=== PATIENT | male | born 1975 | race Hispanic/Latino ===

== ENCOUNTER 2016-12-05 10:11 | Outpatient (CLI) | payer OTHER | END 2016-12-05 10:12 | disposition home or self-care (01) | LOC: LAB 10:11 → MERGE 10:11 → LAB 10:12 | PROVIDERS: ATTEND Psychiatry & Neurology Psychiatry | DX: F33.1 Major depressive disorder, recurrent, moderate (principal) | CPT/HCPCS: 36415; 86592 ==

== ENCOUNTER 2016-12-14 21:15 | Emergency (ER) | payer OTHER ==
[2016-12-14 22:07] LABS: Urine Drugs of Abuse Note Disclamer
[2016-12-14 22:15] LABS: Bilirubin,Urine NEG (Negative); Blood,Urine NEG (Negative); Ketones,Urine NEG (Negative); Leukocyte Esterase,Urine NEG (Negative); Nitrite,Urine NEG (Negative); Protein,Urine <15 mg/dL mg/dL (Negative); WBC,Urine < 1.0 /HPF (0.0-6.0)
[2016-12-14 22:19] LABS: Basophils % (Auto) 0.8 % (0.0-1.8); Eosinophils % (Auto) 2.7 % (0.0-4.3); Hematocrit 38.6 % (35.5-45.6); Hemoglobin 12.9 gm/dl (11.8-15.2); Mean Corpuscular HGB Conc 34 % (32-34); Mean Corpuscular Hemoglobin 26 pg (28-32); Mean Corpuscular Volume 79 fl (84-94); Platelet Count 155 K/mm3 (140-440); Red Blood Count 4.89 M/mm3 (3.65-5.03); Red Cell Distribution Width 16.1 % (13.2-15.2); White Blood Count 9.6 K/mm3 (4.5-11.0)
[2016-12-14 22:34] LABS: Anion Gap 19 mmol/L; Blood Urea Nitrogen 13 mg/dL (9-20); Calcium 8.7 mg/dL (8.4-10.2); Carbon Dioxide 27 mmol/L (22-30); Chloride 100.8 mmol/L (98-107); Glucose 156 mg/dL (75-100); Potassium 3.7 mmol/L (3.6-5.0); Sodium 143 mmol/L (137-145)
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
[2016-12-15 13:38] VITALS: BP 144/79
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
== END 2016-12-15 16:35 ==
LOC: ED 21:15 → EEVIPCON 21:15 → ED 12-15 16:35
DX: F33.3 Major depressive disorder, recurrent, severe with psychotic symptoms (principal); F23 Brief psychotic disorder; F17.200 Nicotine dependence, unspecified, uncomplicated
CPT/HCPCS: 36415; 80048; 80307; 81001; 85025; 99285; G0480; 80320

== ENCOUNTER 2016-12-18 15:02 | Inpatient (IN) | payer OTHER ==
[2016-12-18] MEDS ORDERED: NACL 0.9% 500 ML 500 ML IV ONE (15:52)
--- NOTE | 2016-12-18 16:17 | XRay Report ---
AP CHEST: HISTORY: Sepsis AP view of the chest demonstrates a normal mediastinal and cardiac contour with clear lungs and normal bony and soft tissue structures. IMPRESSION: Unremarkable AP chest.
[2016-12-18 16:42] LABS: Basophils % (Auto) 0.5 % (0.0-1.8); Eosinophils % (Auto) 1.6 % (0.0-4.3); Hematocrit 39.2 % (35.5-45.6); Hemoglobin 12.5 gm/dl (11.8-15.2); Mean Corpuscular HGB Conc 32 % (32-34); Mean Corpuscular Volume 80 fl (84-94); Platelet Count 145 K/mm3 (140-440); Red Cell Distribution Width 16.4 % (13.2-15.2); White Blood Count 11.9 K/mm3 (4.5-11.0)
[2016-12-18 16:49] LABS: Mean Corpuscular Hemoglobin 26 pg (28-32)
[2016-12-18 16:50] LABS: INR 1.07 (0.87-1.13)
[2016-12-18 16:53] LABS: Alanine Aminotransferase 41 units/L (7-56); Albumin/Globulin Ratio 1.2 %; Alkaline Phosphatase 77 units/L (35-129); Anion Gap 25 mmol/L; Blood Urea Nitrogen 11 mg/dL (9-20); Calcium 8.7 mg/dL (8.4-10.2); Carbon Dioxide 22 mmol/L (22-30); Glucose 260 mg/dL (75-100); Potassium 4.7 mmol/L (3.6-5.0); Sodium 136 mmol/L (137-145); Total Protein 7.4 g/dL (6.3-8.2)
[2016-12-18 16:54] LABS: Bilirubin,Urine NEG (Negative); Blood,Urine NEG (Negative); Ketones,Urine TR mg/dL (Negative); Leukocyte Esterase,Urine TR (Negative); Mucus,Urine 1+ /HPF; Nitrite,Urine NEG (Negative)
[2016-12-18] MEDS ORDERED: ZOSYN/NS 4.5GM/100ML 4.5 GM/100 ML VIAL IV ONE (17:18)
[2016-12-18] MEDS ORDERED: VANCOMYCIN/NS 1 GM/250 ML 1 GM/250 ML BAG IV ONE (17:18)
--- NOTE | 2016-12-18 17:28 | Emergency Department Report ---
HPI - General Chief Complaint: Wound/Laceration Time Seen by Provider: 12/18/16 17:03 - HPI HPI: Room 18 The patient is a 40-year-old male presenting with a chief complaint of right thumb infection. The patient is currently at [facility] under 1013 for psychosis and EtOH abuse. The patient states 3 days ago he got a splinter in his right thumb. The patient states he noticed redness and swelling over the past couple days that has been worsening. Yesterday the wound opened. The patient was seen by the physician at [facility] and sent to the ED for evaluation. ED Past Medical Hx - Past Medical History Hx Diabetes: Yes Additional medical history: ETOH ABUSE - Surgical History Additional Surgical History: Right elbow crush injury with infection multiple surgeries. Left ankle fracture repair. Left hip replacement - Family History Family history: no significant - Social History Smoking Status: Current Every Day Smoker Substance Use Type: Alcohol - Medications Home Medications: Home Medications Medication Instructions Recorded Confirmed Last Taken Type Depakote 1,000 mg PO QHS 12/18/16 12/18/16 1 Day Ago History Doxycycline [Vibramycin CAP] 100 mg PO DAILY 12/18/16 12/18/16 12/18/16 History 100mg Mirtazapine [Remeron] 15 mg PO QHS 12/18/16 12/18/16 1 Day Ago History 15 Naltrexone (Nf) [Revia (Nf)] 50 mg PO QHS 12/18/16 12/18/16 1 Day Ago History 50mg Saxagliptin HCl/Metformin HCl 2.5 - 1,000 mg PO BID 12/18/16 12/18/16 12/18/16 History [Kombiglyze XR 2.5-1,000 mg] 2.5/1000mg Venlafaxine Xr [Effexor XR] 150 mg PO DAILY 12/18/16 12/18/16 12/18/16 History hydrOXYzine PAMOATE [Vistaril] 50 mg PO QID 12/18/16 12/18/16 12/18/16 History 50mg traZODone [Desyrel] 300 mg PO QHS 12/18/16 12/18/16 1 Day Ago History ED Review of Systems ROS: Stated complaint: RT THUMB PAIN Other details as noted in HPI Comment: All other systems reviewed and negative Constitutional: denies: chills Eyes: denies: eye pain, eye discharge, vision change ENT: denies: ear pain, throat pain Respiratory: denies: cough, shortness of breath, wheezing Cardiovascular: denies: chest pain, palpitations Endocrine: no symptoms reported Gastrointestinal: denies: abdominal pain, nausea, diarrhea Genitourinary: denies: urgency, dysuria Musculoskeletal: arthralgia, myalgia Skin: lesions, change in color Neurological: denies: headache, weakness, paresthesias Psychiatric: denies: anxiety, depression Hematological/Lymphatic: denies: easy bleeding, easy bruising Physical Exam - Physical Exam Vital Signs: Vital Signs 12/18/16 12/18/16 15:50 15:51 Temperature 98.4 F 97.9 F Pulse Rate 102 H 104 H Respiratory 16 18 Rate Blood Pressure 130/75 130/75 [Left] O2 Sat by Pulse 99 96 Oximetry Physical Exam: GENERAL: The patient is well-developed well-nourished male lying on stretcher not appearing to be in acute distress. [] HEENT: Normocephalic. Atraumatic. Extraocular motions are intact. Patient has moist mucous membranes. NECK: Supple. Trachea midline CHEST/LUNGS: Clear to auscultation. There is no respiratory distress noted. HEART/CARDIOVASCULAR: Regular. There is no tachycardia. There is no gallop rub or murmur. 2+ radial pulse ABDOMEN: Abdomen is soft, nontender. Patient has normal bowel sounds. There is no abdominal distention. SKIN: There is swelling and discoloration of distal right thumb. There is a region of central opening to the anterior aspect of the right thumb. No active drainage appreciated. There is no diaphoresis. NEURO: The patient is awake, alert, and oriented. The patient is cooperative. The patient has normal speech MUSCULOSKELETAL:There is no limitation range of motion. ED Course Vital Signs 12/18/16 12/18/16 15:50 15:51 Temperature 98.4 F 97.9 F Pulse Rate 102 H 104 H Respiratory 16 18 Rate Blood Pressure 130/75 130/75 [Left] O2 Sat by Pulse 99 96 Oximetry ED Medical Decision Making - Lab Data Result diagrams: 12/18/16 16:19 12/18/16 16:19 Laboratory Tests 12/18/16 12/18/16 12/18/16 16:05 16:19 16:19 WBC 11.9 H RBC 4.90 Hgb 12.5 Hct 39.2 MCV 80 L MCH 26 L MCHC 32 RDW 16.4 H Plt Count 145 Lymph % (Auto) 11.4 L [place]ney % (Auto) 7.7 H Eos % (Auto) 1.6 Baso % (Auto) 0.5 Lymph # 1.4 Harney # 0.9 H Eos # 0.2 Baso # 0.1 Seg Neutrophils % 78.8 H Seg Neutrophils # 9.4 H PT 13.8 INR 1.07 Sodium Potassium Chloride Carbon Dioxide Anion Gap BUN Creatinine Estimated GFR BUN/Creatinine Ratio Glucose POC Glucose Lactic Acid Calcium Total Bilirubin AST ALT Alkaline Phosphatase Total Protein Albumin Albumin/Globulin Ratio Urine Color Yellow Urine Turbidity Clear Urine pH 5.0 Ur Specific [place] 1.021 Urine Protein 100 mg/dl Urine Glucose (UA) 150 Urine Ketones Tr Urine Blood Neg Urine Nitrite Neg Urine Bilirubin Neg Urine Urobilinogen 4.0 Ur Leukocyte Esterase Tr Urine WBC (Auto) 1.0 Urine RBC (Auto) 3.0 U Epithel Cells (Auto) < 1.0 Hyaline Casts 4 Urine Mucus 1+ 12/18/16 12/18/16 12/18/16 16:19 16:19 17:09 WBC RBC Hgb Hct MCV MCH MCHC RDW Plt Count Lymph % (Auto) [place] % (Auto) Eos % (Auto) Baso % (Auto) Lymph # [place] # Eos # Baso # Seg Neutrophils % Seg Neutrophils # PT INR Sodium 136 L Potassium 4.7 D Chloride 94.0 L Carbon Dioxide 22 Anion Gap 25 BUN 11 Creatinine 0.5 L Estimated GFR > 60 BUN/Creatinine Ratio 22.00 Glucose 260 H POC Glucose 249 H Lactic Acid 4.80 H* Calcium 8.7 Total Bilirubin 0.20 AST 26 ALT 41 Alkaline Phosphatase 77 Total Protein 7.4 Albumin 4.0 Albumin/Globulin Ratio 1.2 Urine Color Urine Turbidity Urine pH Ur Specific [place] Urine Protein Urine Glucose (UA) Urine Ketones Urine Blood Urine Nitrite Urine Bilirubin Urine Urobilinogen Ur Leukocyte Esterase Urine WBC (Auto) Urine RBC (Auto) U Epithel Cells (Auto) Hyaline Casts Urine Mucus - Radiology Data Radiology results: image reviewed (right thumb x-ray, chest x-ray) interpreted by me: Right thumb x-ray-no foreign bodies, no fracture seen. Chest x-ray-no focal infiltrates, no pneumothorax - Differential Diagnosis cellulitis, osteomyelitis Critical care attestation.: If time is entered above; I have spent that time in minutes in the direct care of this critically ill patient, excluding procedure time. ED Disposition Clinical Impression: Cellulitis of right thumb, Leukocytosis Disposition: [id number] OP ADMIT IP TO THIS HOSP Is pt being admited?: Yes Does the pt Need Aspirin: Yes Condition: Fair Time of Disposition: 17:30 (hospitalist paged)
--- NOTE | 2016-12-18 17:56 | Admit Criteria Form ---
Admission Criteria Documentation: CELLULITIS Clinical Indications for Admission to Inpatient Care ([place]/check or initial the applicable condition/criteria) Admission is indicated for ANY ONE of the following(1)(2)(3)(4)(5): [ ]I. Limb-threatening infection [ X]II. High-risk comorbid condition as indicated by ANY ONE of the following: [X ]a) Uncontrolled diabetes (eg, HbA1c greater than 10% (0.1)) [ ]b) Cirrhosis [ ]c) Neutropenia [ ]d) Asplenia(12) [ ]e) Immunosuppression [ ]f) Symptomatic heart failure [ ]III. Failure of outpatient therapy as indicated by ALL of the following(6): [ ]a) Progression or no improvement after adequate trial (minimum of 48 hours, with longer period for stable lower extremity infection) [ ]b) Adequate antibiotic regimen as indicated by use of ANY ONE of the following: [ ]i) First-generation cephalosporin (e.g., cephalexin) [ ]ii) Antistaphylococcal penicillin (e.g., dicloxacillin) [ ]iii) Penicillin-allergic patient regimen (clindamycin, extended-spectrum fluoroquinolone, or doxycycline) [ ]iv) Resistant organism (eg, methicillin-resistant Staphylococcus aureus) regimen (7)(8) [ ]c) Outpatient intravenous therapy regimen is not appropriate due to ANY ONE of the following. (9)(10) [ ]i) It was tried and was not successful (eg, progression of infection). [ ]ii) It is not available or cannot be arranged in a clinically appropriate time frame (e.g., the next day). [ ]iii) Clinical presentation (eg, acuity of infection, rapidity of progression, confirmed or suspected bacteremia) is judged to require ALL of the following: [ ]1) Immediate initiation of intravenous therapy ( eg, cannot wait for next day) [ ]2) Intensity of patient monitoring and observation (eg, vital sign measurement, checks for infection progression) that cannot be provided at other than inpatient level of care [ ]IV. Altered Mental status that is severe or persistent [ ]V. Bacteremia [ ]. Hemodynamic instability [ ]VII. Suspected necrotizing soft tissue infection (e.g., gas in tissue)(13)( 14)(15) [ ]VIII. Orbital infection (16)(17) [ ]XI. Associated surgical procedure (e.g., abscess drainage, debridement) not amenable to outpatient, emergency department, or observation care [ ]X. Cutaneous gangrene(19) [ ]XII. High fever (temperature greater than 39.5 degrees C (103.1 degrees F) (oral)) not responsive to outpatient, emergency department, or observation care therapy(20)(21) [X ]XIII. Inpatient admission required [A]rather than observation care (Also use Cellulitis: Observation Care as appropriate) because of ANY ONE of the following(22)(23): [ ]a) Periorbital or perineal infection that is severe or worsening [ ]b) Severe pain requiring acute inpatient management [ ]b) IV fluid to replace significant ongoing (e.g., for over 24 hours) losses (greater than 3 L/m2 per day) [ ]b) Compartment syndrome monitoring (24) [ ]b) Strict or protective (eg, laminar flow) isolation) [ ]b) Urgent debridement or skin grafting [ ]b) Bone or joint debridement [ ]b) Immediate inpatient surgery [X ]b) Other condition, treatment, or monitoring requiring inpatient admission Extended stay beyond goal length of stay may be needed for(18)(36)(37)(38)(39)( 40)(41) [ ]a) Necrotizing soft tissue infection or fasciitis(13)(42) [ ]b) Gram-negative infection [ ]c) Methicillin-resistant Staphylococcal aureus (MRSA) infection(7)(43) [ ]d) Peripheral venous insufficiency with cellulitis [ ]e) Extensive edema [ ]f) Sepsis or continued Hemodynamic instability [ ]g) Continued high fever or mental status change [ ]h) Bacteremia(43) [ ]i) Active serious comorbid conditions ( eg, heart failure, renal insufficiency) The original [employer] content created by [employer] has been revised. The portions of the content which have been revised are identified through the use of italic text or in bold, and [facility] [email or web address] has neither reviewed nor approved the modified material. All other unmodified content is copyright [employer] [facility] Please see references footnoted in the original [employer] [facility] edition 2017
[2016-12-18 18:25] VITALS: BP 131/79
--- NOTE | 2016-12-18 21:51 | History and Physical Report ---
History of Present Illness Date of examination: 12/18/16 Date of admission: 12/18/16 17:52 Chief complaint: Rt Thumb ifection.3 days History of present illness: HPI The patient is a 40-year-old male presenting with a chief complaint of right thumb infection. The patient is currently at [facility] for psychosis and EtOH abuse. The patient states 3 days ago he got a splinter in his right thumb. The patient states he noticed redness and swelling over the past couple days that has been worsening. Yesterday the wound opened. The patient was seen by the physician at [facility] and sent to the ED for evaluation. Past Medical History Hx Diabetes: Yes ETOH ABUSE Depression Psychoses - Surgical History Additional Surgical History: Right elbow crush injury with infection multiple surgeries. Left ankle fracture repair. Left hip replacement - Family History Family history: no significant - Social History Smoking Status: Current Every Day Smoker Substance Use Type: Alcohol - Medications Home Medications: Home Medications Medication Instructions Recorded Confirmed Last Taken Type Depakote 1,000 mg PO QHS 12/18/16 12/18/16 1 Day Ago History Doxycycline [Vibramycin CAP] 100 mg PO DAILY 12/18/16 12/18/16 12/18/16 History 100mg Mirtazapine [Remeron] 15 mg PO QHS 12/18/16 12/18/16 1 Day Ago History 15 Naltrexone (Nf) [Revia (Nf)] 50 mg PO QHS 12/18/16 12/18/16 1 Day Ago History 50mg Saxagliptin HCl/Metformin HCl 2.5 - 1,000 mg PO BID 12/18/16 12/18/16 12/18/16 History [Kombiglyze XR 2.5-1,000 mg] 2.5/1000mg Venlafaxine Xr [Effexor XR] 150 mg PO DAILY 12/18/16 12/18/16 12/18/16 History hydrOXYzine PAMOATE [Vistaril] 50 mg PO QID 12/18/16 12/18/16 12/18/16 History 50mg traZODone [Desyrel] 300 mg PO QHS 12/18/16 12/18/16 1 Day Ago History Review of Systems ROS: Stated complaint: RT THUMB PAIN Other details as noted in HPI Comment: All other systems reviewed and negative Constitutional: denies: chills Eyes: denies: eye pain, eye discharge, vision change ENT: denies: ear pain, throat pain Respiratory: denies: cough, shortness of breath, wheezing Cardiovascular: denies: chest pain, palpitations Endocrine: no symptoms reported Gastrointestinal: denies: abdominal pain, nausea, diarrhea Genitourinary: denies: urgency, dysuria Musculoskeletal: arthralgia, myalgia Skin: lesions, change in color Rt thumb swollen and red Neurological: denies: headache, weakness, paresthesias Psychiatric: denies: anxiety, depression Hematological/Lymphatic: denies: easy bleeding, easy bruising Medications and Allergies Allergies Allergy/AdvReac Type Severity Reaction Status Date / Time No Known Allergies Allergy Verified 12/14/16 21:24 Home Medications Medication Instructions Recorded Confirmed Last Taken Type Depakote 1,000 mg PO QHS 12/18/16 12/18/16 1 Day Ago History Doxycycline [Vibramycin CAP] 100 mg PO DAILY 12/18/16 12/18/16 12/18/16 History 100mg Mirtazapine [Remeron] 15 mg PO QHS 12/18/16 12/18/16 1 Day Ago History 15 Naltrexone (Nf) [Revia (Nf)] 50 mg PO QHS 12/18/16 12/18/16 1 Day Ago History 50mg Saxagliptin HCl/Metformin HCl 2.5 - 1,000 mg PO BID 12/18/16 12/18/16 12/18/16 History [Kombiglyze XR 2.5-1,000 mg] 2.5/1000mg Venlafaxine Xr [Effexor XR] 150 mg PO DAILY 12/18/16 12/18/16 12/18/16 History hydrOXYzine PAMOATE [Vistaril] 50 mg PO QID 12/18/16 12/18/16 12/18/16 History 50mg traZODone [Desyrel] 300 mg PO QHS 12/18/16 12/18/16 1 Day Ago History Exam - Constitutional Vitals: Temp Pulse Resp BP Pulse Ox 97.9 F 104 H 16 131/79 97 12/18/16 15:51 12/18/16 18:00 12/18/16 18:00 12/18/16 18:00 12/18/16 18:00 General appearance: Present: no acute distress, well-nourished - EENT Eyes: Present: PERRL ENT: hearing intact, clear oral mucosa - Neck Neck: Present: supple, normal ROM - Respiratory Respiratory effort: normal Respiratory: bilateral: CTA - Cardiovascular Heart rate: 70 Rhythm: regular Heart Sounds: Present: S1 & S2. Absent: rub, click - Extremities Extremities: no ischemia, pulses intact, pulses symmetrical, No edema, abnormal (Rt thumb swollen red and tender) Peripheral Pulses: within normal limits - Abdominal General gastrointestinal: Present: soft, non-tender, non-distended, normal bowel sounds Male genitourinary: Present: normal - Rectal Rectal Exam: deferred - Integumentary Integumentary: Present: clear, warm, dry - Musculoskeletal Musculoskeletal: gait normal, strength equal bilaterally - Psychiatric Psychiatric: appropriate mood/affect, intact judgment & insight - Neurologic Neurologic: CNII-XII intact, moves all extremities Results - Labs CBC & Chem 7: 12/18/16 16:19 12/18/16 16:19 Labs: Laboratory Last Values WBC 11.9 K/mm3 (4.5-11.0) H 12/18/16 16:19 RBC 4.90 M/mm3 (3.65-5.03) 12/18/16 16:19 Hgb 12.5 gm/dl (11.8-15.2) 12/18/16 16:19 Hct 39.2 % (35.5-45.6) 12/18/16 16:19 MCV 80 fl (84-94) L 12/18/16 16:19 MCH 26 pg (28-32) L 12/18/16 16:19 MCHC 32 % (32-34) 12/18/16 16:19 RDW 16.4 % (13.2-15.2) H 12/18/16 16:19 Plt Count 145 K/mm3 (140-440) 12/18/16 16:19 Lymph % (Auto) 11.4 % (13.4-35.0) L 12/18/16 16:19 [place] % (Auto) 7.7 % (0.0-7.3) H 12/18/16 16:19 Eos % (Auto) 1.6 % (0.0-4.3) 12/18/16 16:19 Baso % (Auto) 0.5 % (0.0-1.8) 12/18/16 16:19 Lymph # 1.4 K/mm3 (1.2-5.4) 12/18/16 16:19 [place] # 0.9 K/mm3 (0.0-0.8) H 12/18/16 16:19 Eos # 0.2 K/mm3 (0.0-0.4) 12/18/16 16:19 Baso # 0.1 K/mm3 (0.0-0.1) 12/18/16 16:19 Seg Neutrophils % 78.8 % (40.0-70.0) H 12/18/16 16:19 Seg Neutrophils # 9.4 K/mm3 (1.8-7.7) H 12/18/16 16:19 PT 13.8 Sec. (12.2-14.9) 12/18/16 16:19 INR 1.07 (0.87-1.13) 12/18/16 16:19 Sodium 136 mmol/L (137-145) L 12/18/16 16:19 Potassium 4.7 mmol/L (3.6-5.0) D 12/18/16 16:19 Chloride 94.0 mmol/L (98-107) L 12/18/16 16:19 Carbon Dioxide 22 mmol/L (22-30) 12/18/16 16:19 Anion Gap 25 mmol/L 12/18/16 16:19 BUN 11 mg/dL (9-20) 12/18/16 16:19 Creatinine 0.5 mg/dL (0.8-1.5) L 12/18/16 16:19 Estimated GFR > 60 ml/min 12/18/16 16:19 BUN/Creatinine Ratio 22.00 % 12/18/16 16:19 Glucose 260 mg/dL (75-100) H 12/18/16 16:19 POC Glucose 249 (70-105) H 12/18/16 17:09 Lactic Acid 4.80 mmol/L (0.7-2.0) H* 12/18/16 16:19 Calcium 8.7 mg/dL (8.4-10.2) 12/18/16 16:19 Total Bilirubin 0.20 mg/dL (0.1-1.2) 12/18/16 16:19 AST 26 units/L (5-40) 12/18/16 16:19 ALT 41 units/L (7-56) 12/18/16 16:19 Alkaline Phosphatase 77 units/L (35-129) 12/18/16 16:19 Total Protein 7.4 g/dL (6.3-8.2) 12/18/16 16:19 Albumin 4.0 g/dL (3.9-5) 12/18/16 16:19 Albumin/Globulin Ratio 1.2 % 12/18/16 16:19 Urine Color Yellow (Yellow) 12/18/16 16:05 Urine Turbidity Clear (Clear) 12/18/16 16:05 Urine pH 5.0 (5.0-7.0) 12/18/16 16:05 Ur Specific [place] 1.021 (1.003-1.030) 12/18/16 16:05 Urine Protein 100 mg/dl mg/dL (Negative) 12/18/16 16:05 Urine Glucose (UA) 150 mg/dL (Negative) 12/18/16 16:05 Urine Ketones Tr mg/dL (Negative) 12/18/16 16:05 Urine Blood Neg (Negative) 12/18/16 16:05 Urine Nitrite Neg (Negative) 12/18/16 16:05 Urine Bilirubin Neg (Negative) 12/18/16 16:05 Urine Urobilinogen 4.0 mg/dL (<2.0) 12/18/16 16:05 Ur Leukocyte Esterase Tr (Negative) 12/18/16 16:05 Urine WBC (Auto) 1.0 /HPF (0.0-6.0) 12/18/16 16:05 Urine RBC (Auto) 3.0 /HPF (0.0-6.0) 12/18/16 16:05 U Epithel Cells (Auto) < 1.0 /HPF (0-13.0) 12/18/16 16:05 Hyaline Casts 4 /LPF 12/18/16 16:05 Urine Mucus 1+ /HPF 12/18/16 16:05 Assessment and Plan Assessment and plan: Full code Advance Directives: Yes VTE prophylaxis?: Chemical Plan of care discussed with patient/family: Yes - Patient Problems (1) Cellulitis of right thumb Status: Acute Plan to address problem: Patient initiated on IV Vancomycin and Unasyn Surgery consult requested May need I and D (2) Major depression Status: Chronic Qualifiers: Major depression recurrence: recurrent Active/Remission status: currently active Major depression episode severity: severe Psychotic features: with psychotic features Qualified Code(s): F33.3 - Major depressive disorder, recurrent, severe with psychotic symptoms Plan to address problem: Cont Trazodone (3) T2DM (type 2 diabetes mellitus) Status: Chronic Qualifiers: Diabetes mellitus complication status: without complication Diabetes mellitus complication detail: D Diabetic retinopathy severity: D Proliferative retinopathy type: P Diabetes mellitus macular edema: D Diabetes mellitus exterminator insulin use: D Laterality: L Chronic kidney disease stage: C Plan to address problem: Cont Oral Hypoglycemics and coverage (4) EtOH dependence Status: Acute Qualifiers: Substance use status: S Complication of substance-induced condition: C Plan to address problem: Patient initiated on CIWA protocol (5) Psychosis Status: Chronic Qualifiers: Psychosis type: P Schizoaffective disorder type: S Schizophrenia type: S Plan to address problem: on Depakote (6) DVT prophylaxis Status: Acute Plan to address problem: On Lovenox 40 mg sq qd
[2016-12-18] MEDS ORDERED: DILAUDID IV PRN (21:57)
[2016-12-18] MEDS ORDERED: NALTREXONE 50 MG PO SCH (22:00)
[2016-12-18] MEDS ORDERED: DESYREL PO SCH (22:00)
[2016-12-18] MEDS ORDERED: REMERON PO SCH (22:00)
[2016-12-18] MEDS ORDERED: VANCOMYCIN PHARMACY TO DOSE IV SCH (22:00)
[2016-12-18] MEDS ORDERED: VISTARIL PO SCH (22:00)
[2016-12-18] MEDS ORDERED: NOVOLOG SUB-Q SCH (22:00)
[2016-12-18] MEDS ORDERED: VANCOMYCIN 2,000 MG in NACL 0.9% 500 ML 500 ML IV ONE (22:30)
[2016-12-19] MEDS ORDERED: VANCOMYCIN 1,500 MG in NACL 0.9% 500 ML 500 ML IV ONE
[2016-12-19] MEDS ORDERED: UNASYN/NS 3 GM/100 ML 3 GM/100 ML BAG IV SCH
--- NOTE | 2016-12-19 08:35 | XRay Report ---
RIGHT THUMB: History: Right thumb pain and infection. The bony architecture is intact. Bony alignment is normal. No soft tissue abnormalities are seen. The joint spaces appear preserved. IMPRESSION: Unremarkable right thumb.
[2016-12-19] MEDS ORDERED: VANCOMYCIN 1,500 MG in NACL 0.9% 500 ML 500 ML IV SCH (10:00)
[2016-12-19] MEDS ORDERED: EFFEXOR XR PO SCH (10:00)
[2016-12-19] MEDS ORDERED: HALDOL IV PRN ×2 (10:59)
[2016-12-19] MEDS ORDERED: ATIVAN IV PRN ×3 (10:59)
[2016-12-19] MEDS ORDERED: ATIVAN PO PRN ×2 (10:59)
[2016-12-19] MEDS ORDERED: LIBRIUM PO PRN ×2 (10:59)
== END 2016-12-19 06:46 | disposition left against medical advice (07) | DRG 603 ==
LOC: ED 15:02 → 3A 17:52
PROVIDERS: ADMIT Internal Medicine; ATTEND Internal Medicine
DX: L03.011 Cellulitis of right finger (principal); F33.3 Major depressive disorder, recurrent, severe with psychotic symptoms; L08.9 Local infection of the skin and subcutaneous tissue, unspecified; F10.10 Alcohol abuse, uncomplicated; F17.200 Nicotine dependence, unspecified, uncomplicated; Z96.642 Presence of left artificial hip joint; F29 Unspecified psychosis not due to a substance or known physiological condition; Z53.21 Procedure and treatment not carried out due to patient leaving prior to being seen by health care provider
CPT/HCPCS: 36415; 71010; 80053; 81001; 82140; 82962; 85025; 85610; 87040; 87086; 96361; 96374; J0295; J2543; J3370; J7040

== ENCOUNTER 2016-12-26 08:48 | Emergency (ER) | payer OTHER ==
[2016-12-26 09:34] LABS: Basophils % (Auto) 1.3 % (0.0-1.8); Eosinophils % (Auto) 1.6 % (0.0-4.3); Hematocrit 40.4 % (35.5-45.6); Hemoglobin 13.2 gm/dl (11.8-15.2); Mean Corpuscular HGB Conc 33 % (32-34); Mean Corpuscular Volume 78 fl (84-94); Platelet Count 208 K/mm3 (140-440); Red Blood Count 5.17 M/mm3 (3.65-5.03); Red Cell Distribution Width 16.4 % (13.2-15.2); White Blood Count 10.9 K/mm3 (4.5-11.0)
[2016-12-26 09:40] LABS: Mean Corpuscular Hemoglobin 26 pg (28-32)
[2016-12-26 09:49] LABS: Anion Gap 19 mmol/L; BUN/Creatinine Ratio 28.33; Blood Urea Nitrogen 17 mg/dL (9-20); Calcium 8.7 mg/dL (8.4-10.2); Carbon Dioxide 23 mmol/L (22-30); Chloride 97.5 mmol/L (98-107); Glucose 279 mg/dL (75-100); Potassium 3.6 mmol/L (3.6-5.0); Sodium 136 mmol/L (137-145)
--- NOTE | 2016-12-26 14:02 | Emergency Department Report ---
ED Upper Extremity Inj HPI - General Chief Complaint: Extremity Injury, Upper Stated Complaint: RIGHT THUMB INFECTION Time Seen by Provider: 12/26/16 13:43 Source: patient Mode of arrival: Ambulatory Limitations: No Limitations - History of Present Illness Initial Comments: 41-year-old male with a history of substance abuse here with complaint of right thumb swelling. Patient believes he had a splinter enter his thumb approximately 10 days ago. Since that time and thumb is swollen and increased in size. He's been on 2 rounds of oral antibiotics without success. He has a history of alcohol and drug abuse. A history of MRSA in the right arm. MD Complaint: Injury to:: right -: days(s) Other Extremity Injury: Hand: Right (right thumb swelling) Improves With: none Associated Symptoms: suspects foreign body - Related Data Home Medications Medication Instructions Recorded Confirmed Last Taken Depakote 1,000 mg PO QHS 12/18/16 12/18/16 1 Day Ago Doxycycline [Vibramycin CAP] 100 mg PO DAILY 12/18/16 12/18/16 12/18/16 100mg Mirtazapine [Remeron] 15 mg PO QHS 12/18/16 12/18/16 1 Day Ago 15 Naltrexone (Nf) [Revia (Nf)] 50 mg PO QHS 12/18/16 12/18/16 1 Day Ago 50mg Saxagliptin HCl/Metformin HCl 2.5 - 1,000 mg PO BID 12/18/16 12/18/16 12/18/16 [Kombiglyze XR 2.5-1,000 mg] 2.5/1000mg Venlafaxine Xr [Effexor XR] 150 mg PO DAILY 12/18/16 12/18/16 12/18/16 hydrOXYzine PAMOATE [Vistaril] 50 mg PO QID 12/18/16 12/18/16 12/18/16 50mg traZODone [Desyrel] 300 mg PO QHS 12/18/16 12/18/16 1 Day Ago Previous Rx's Medication Instructions Recorded Last Taken Type Clindamycin [Clindamycin CAP] 300 mg PO Q6H #40 capsule 12/26/16 Unknown Rx Ibuprofen [Motrin] 600 mg PO Q8H PRN #30 tablet 12/26/16 Unknown Rx Allergies Allergy/AdvReac Type Severity Reaction Status Date / Time No Known Allergies Allergy Verified 12/14/16 21:24 ED Review of Systems ROS: Stated complaint: RIGHT THUMB INFECTION Other details as noted in HPI Constitutional: fever. denies: chills Respiratory: denies: cough, orthopnea, shortness of breath Cardiovascular: denies: chest pain, palpitations Gastrointestinal: denies: nausea, vomiting ED Past Medical Hx - Past Medical History Previous Medical History?: Yes Hx Diabetes: Yes Hx Psychiatric Treatment: Yes (ETOH dependent) Additional medical history: ETOH ABUSE - Surgical History Past Surgical History?: Yes Additional Surgical History: Right elbow crush injury with infection multiple surgeries. Left ankle fracture repair. Left hip replacement - Social History Smoking Status: Current Every Day Smoker Substance Use Type: Alcohol, Prescribed - Medications Home Medications: Home Medications Medication Instructions Recorded Confirmed Last Taken Type Depakote 1,000 mg PO QHS 12/18/16 12/18/16 1 Day Ago History Doxycycline [Vibramycin CAP] 100 mg PO DAILY 12/18/16 12/18/16 12/18/16 History 100mg Mirtazapine [Remeron] 15 mg PO QHS 12/18/16 12/18/16 1 Day Ago History 15 Naltrexone (Nf) [Revia (Nf)] 50 mg PO QHS 12/18/16 12/18/16 1 Day Ago History 50mg Saxagliptin HCl/Metformin HCl 2.5 - 1,000 mg PO BID 12/18/16 12/18/16 12/18/16 History [Kombiglyze XR 2.5-1,000 mg] 2.5/1000mg Venlafaxine Xr [Effexor XR] 150 mg PO DAILY 12/18/16 12/18/16 12/18/16 History hydrOXYzine PAMOATE [Vistaril] 50 mg PO QID 12/18/16 12/18/16 12/18/16 History 50mg traZODone [Desyrel] 300 mg PO QHS 12/18/16 12/18/16 1 Day Ago History Clindamycin [Clindamycin CAP] 300 mg PO Q6H #40 capsule 12/26/16 Unknown Rx Ibuprofen [Motrin] 600 mg PO Q8H PRN #30 tablet 12/26/16 Unknown Rx ED Physical Exam - General Limitations: No Limitations - Head Head exam: Present: atraumatic, normocephalic - Eye Eye exam: Present: normal appearance, PERRL - Neck Neck exam: Present: normal inspection. Absent: tenderness - Respiratory Respiratory exam: Present: normal lung sounds bilaterally. Absent: respiratory distress, wheezes - Cardiovascular Cardiovascular Exam: Absent: regular rate, normal rhythm - GI/Abdominal GI/Abdominal exam: Present: soft. Absent: distended - Expanded Upper Extremity Exam Right Hand L/R Back: 1 - Significant swelling of the right thumb, there is ulceration at the tuft of the thumb Neuro motor exam: Present: wrist extension intact, thumb opposition intact, thumb IP flexion intact, thumb adduction intact, fingers 2-5 abduction intact Vascular: Absent: vascular compromise, normal capillary refill - Neurological Exam Neurological exam: Present: alert, oriented X3 ED Course Vital Signs 12/26/16 12/26/16 12/26/16 09:07 14:32 15:40 Temperature 98.8 F Pulse Rate 119 H 93 H Respiratory 16 18 18 Rate Blood Pressure 128/96 Blood Pressure 131/86 [Left] O2 Sat by Pulse 98 100 Oximetry ED Medical Decision Making - Lab Data Result diagrams: 12/26/16 09:17 12/26/16 09:17 Laboratory Results - last 24 hr 12/26/16 12/26/16 12/26/16 09:17 09:17 09:17 WBC 10.9 RBC 5.17 H Hgb 13.2 Hct 40.4 MCV 78 L MCH 26 L MCHC 33 RDW 16.4 H Plt Count 208 Lymph % (Auto) 21.5 [place] % (Auto) 7.1 Eos % (Auto) 1.6 Baso % (Auto) 1.3 Lymph # 2.3 [place] # 0.8 Eos # 0.2 Baso # 0.1 Seg Neutrophils % 68.5 Seg Neutrophils # 7.5 Sodium 136 L Potassium 3.6 Chloride 97.5 L Carbon Dioxide 23 Anion Gap 19 BUN 17 Creatinine 0.6 L Estimated GFR > 60 BUN/Creatinine Ratio 28.33 Glucose 279 H Calcium 8.7 Plasma/Serum Alcohol < 0.01 - Medical Decision Making 41-year-old male with a hand infection here with complaint of continuing swelling and pain. His white count is improved after 2 courses of antibiotics. I discussed the case with Dr. Palmer saw the patient 8 days ago. He feels that the hand is improving. Given that the patient has no fever and his white count is normal I will continue the patient on oral antibiotics and have him follow- up with a hand surgeon as an outpatient. Portions of this chart were dictated with dictation software. There may be dictation errors contained within this note. Critical care attestation.: If time is entered above; I have spent that time in minutes in the direct care of this critically ill patient, excluding procedure time. ED Disposition Clinical Impression: Cellulitis of right thumb Disposition: [id number]-01 TO HOME OR SELFCARE Is pt being admited?: No Condition: Stable Instructions: Cellulitis (ED) Prescriptions: Clindamycin [Clindamycin CAP] 300 mg PO Q6H #40 capsule Ibuprofen [Motrin] 600 mg PO Q8H PRN #30 tablet PRN Reason: Pain Referrals: PRIMARY MD POOJA [Primary Care Provider] - 3-5 Days JOMAR CARO MD [Staff Physician] - 2-3 Days EMILIA LAKE MD [Referring] - 2-3 Days (Please follow up with a hand surgeon.)
[2016-12-26] MEDS: MORPHINE IV ONE (14:30)
[2016-12-26] MEDS: VANCOMYCIN/NS 1 GM/250 ML 1 GM/250 ML BAG IV ONE (14:30)
[2016-12-26 14:42] LABS: Urine Drugs of Abuse Note Disclamer
[2016-12-26 15:11] LABS: Bilirubin,Urine NEG (Negative); Blood,Urine NEG (Negative); Ketones,Urine NEG (Negative); Leukocyte Esterase,Urine NEG (Negative); Mucus,Urine 3+ /HPF; Nitrite,Urine NEG (Negative); Urobilinogen,Urine < 2.0 mg/dL (<2.0)
[2016-12-26 15:41] VITALS: BP 131/86
--- NOTE | 2016-12-26 15:44 | XRay Report ---
RIGHT THUMB: History: Pain and swelling. The bony architecture is intact. Bony alignment is normal. No soft tissue abnormalities are seen. The joint spaces appear preserved. IMPRESSION: Normal right thumb.
== END 2016-12-26 16:07 | disposition home or self-care (01) ==
LOC: ED 08:48
DX: L03.011 Cellulitis of right finger (principal); E11.9 Type 2 diabetes mellitus without complications; F17.200 Nicotine dependence, unspecified, uncomplicated; F10.20 Alcohol dependence, uncomplicated
CPT/HCPCS: 36415; 73140; 80048; 80307; 81001; 85025; 96365; 96375; 99284; G0480; J2270; J3370; 80320